=== PATIENT | female | born 1960 | race African-American/Black ===

== ENCOUNTER 2017-08-02 07:58 | Emergency (ER) | payer OTHER ==
[~2017-08-02] VITALS: Ht 160 cm; Wt 47.6 kg
--- NOTE | ~2017-08-02 | EKG ---
[place] [address] [facility] [place] [address] ELECTROCARDIOGRAM REPORT Name: DELL MOYA [facility] [id number] Admission: 08/02/17 Attend Phys: Discharge: 08/02/17 Date of : 56 Report #: [id number] THIS REPORT FOR: //name// [facility] ED Test Date: 2017-08-02 Test Time: 08:02:28 Pat Name: DELL MOYA Department: Room: Gender: F Signalman: DANIELLA : 1960 Requested By: Becky Mederos Order Number: [id number] MD: Billy Sherman Measurements Intervals [place] Rate: 96 P: 69 HI: 178 QRS: 91 QRSD: 98 T: 36 QT: 358 QTc: 453 Interpretive Statements Sinus rhythm LAE, consider biatrial enlargement Borderline right axis deviation Compared to ECG 09/27/2016 17:10:12 No significant changes Electronically Signed On 08-02-2017 16:29:51 CDT by Billy Sherman [email or web address] <ELECTRONICALLY SIGNED> By: Billy Sherman MD, [facility] 08/02/17 1629 1 1 Billy Sherman MD, [facility] /EPI
[~2017-08-02 07:58] MED LIST: ATIVAN0.5 MG PO; ATIVAN1 MG PO; BACTRIM DS TAB1 EACH; BACTRIM DS TAB1 EACH PO; CALCIUM 600 +1 EAC1 PO; DILANTIN100 MG PO; DILANTIN30 MG PO; FOLIC ACID 40400 MCG PO; KEPPRA 500 MG500 M1; LACTULOSE10 GM/152 PO; LAMICTAL100 MG PO; LAMICTAL150 MG PO; LAMICTAL200 MG PO; LEVAQUIN 500 M500 M2 PO; PHENYTOIN SODI100 M3 PO; PHENYTOIN SODI200 MG PO; SENNA8.6 MG PO; SENOKOT-S1 TA1 PO; TYLENOL325 MG PO; UNICOMPLEX M TA1 TA1 PO; VIMPAT100 MG PO; VIMPAT200 MG PO; VITAMIN B-12500 MCG PO; ZANTAC 150MG T150 MG PO; ZOFRAN ODT4 MG PO
[2017-08-02 09:22] LABS: URINE BILIRUBIN NEGATIVE (Negative); URINE BLOOD NEGATIVE (Negative); URINE COLOR YELLOW; URINE GLUCOSE-RANDOM* NEGATIVE (Negative); URINE KETONES NEGATIVE (Negative); URINE NITRITE NEGATIVE (Negative); URINE PROTEIN (DIPSTICK) NEGATIVE (Negative); URINE UROBILINOGEN 0.2 E.U./dl (0.2-1.0)
[2017-08-02 09:28] LABS: CALCIUM 9.6 mg/dL (8.5-10.1); CREATININE 1.3 mg/dL (0.6-1.0); POTASSIUM 4.5 mmol/L (3.5-5.1)
[2017-08-02 09:34] LABS: ALBUMIN 4.2 g/dL (3.4-5.0); DIRECT BILIRUBIN 0.1 mg/dL (<0.1-0.3); TOTAL BILIRUBIN 0.5 mg/dL (<0.1-1.0); TOTAL PROTEIN 7.7 g/dL (6.4-8.2)
[2017-08-02] MEDS ORDERED: HYDROCODONE-AP1 EAC6 PO (09:37)
[2017-08-02] MEDS ORDERED: BUTALB-APAP-CA1 EACH PO (09:37)
[2017-08-02] MEDS ORDERED: KEFLEX500 MG PO (09:49)
== END 2017-08-02 10:39 ==
LOC: ER 07:58
PROVIDERS: Emergency Medicine
DX: R56.9 Unspecified convulsions (principal); N39.0 Urinary tract infection, site not specified

== ENCOUNTER 2019-06-06 13:01 | Emergency (ER) | payer OTHER ==
[~2019-06-06] VITALS: Ht 172.7 cm; Wt 58.1 kg
[~2019-06-06 13:01] MED LIST changes: +BUTALB-APAP-CA1 EACH PO; +HYDROCODONE-AP1 EAC6 PO; +KEFLEX500 MG PO
[2019-06-06 14:08] LABS: ABSOLUTE NEUTROPHILS 3.1 thou/uL (1.4-8.2); BASOPHILS 0.5 % (0.0-2.0); EOSINOPHILS 0.3 % (0.0-3.0); HEMOGLOBIN 13.1 gm/dL (12.0-15.0); LYMPHOCYTES 35.3 % (24.0-44.0); MCH 29.2 pg (26.0-34.0); MCHC 32.8 g/dL (28.0-37.0); MONOCYTES 8.5 % (1.0-8.0); PLATELET COUNT 302 thou/uL (150-400); POLYS 55.4 % (36.0-66.0); RBC 4.49 mil/uL (4.20-5.00); RDW 13.9 % (10.5-14.5); WBC 5.6 thou/uL (4.0-11.0)
[2019-06-06] MEDS ORDERED: ATIVAN0.5 MG PO (14:11)
[2019-06-06] MEDS ORDERED: LIPITOR10 MG PO (14:12)
[2019-06-06] MEDS ORDERED: ROBITUSSIN100 MG/53 PO (14:12)
[2019-06-06 14:15] LABS: CALCIUM 9.7 mg/dL (8.5-10.1); CREATININE 1.6 mg/dL (0.6-1.0); POTASSIUM 5.2 mmol/L (3.5-5.1)
[2019-06-06 14:23] LABS: MAGNESIUM 1.9 mg/dL (1.8-2.4); TOTAL BILIRUBIN 0.6 mg/dL (<0.1-1.0); TOTAL PROTEIN 7.9 g/dL (6.4-8.2)
[2019-06-06 14:45] LABS: URINE BILIRUBIN NEGATIVE (Negative); URINE BLOOD NEGATIVE (Negative); URINE CLARITY CLEAR; URINE COLOR YELLOW; URINE GLUCOSE-RANDOM* NEGATIVE (Negative); URINE KETONES NEGATIVE (Negative); URINE LEUKOCYTES-REFLEX 1+ (Negative); URINE NITRITE-REFLEX NEGATIVE (Negative); URINE PROTEIN (DIPSTICK) NEGATIVE (Negative); URINE SPECIFIC GRAVITY 1.015 (1.005-1.035); URINE UROBILINOGEN 0.2 E.U./dl (0.2-1.0)
[2019-06-06 14:53] LABS: CASTS None Seen /LPF (None Seen); SQUAMOUS 0-3 Few /LPF (0-3); URINE RBC None Seen /HPF (0-2); URINE WBC-REFLEX 6-15 Few /HPF (0-5)
[2019-06-06 14:55] LABS: AMP/METHAMP Negative (Negative); BARBITURATES Negative (Negative); BENZODIAZEPINES Negative (Negative); COCAINE Negative (Negative); METHADONE Negative (Negative); OPIATES Negative (Negative); PCP Negative (Negative)
[2019-06-06 15:02] VITALS: BP 119/68
== END 2019-06-06 15:03 | disposition home or self-care (01) ==
LOC: ER 13:01
PROVIDERS: Emergency Medicine
DX: G40.909 Epilepsy, unspecified, not intractable, without status epilepticus (principal); E87.5 Hyperkalemia; N18.9 Chronic kidney disease, unspecified; E78.5 Hyperlipidemia, unspecified; Z87.440 Personal history of urinary (tract) infections; Z79.899 Other long term (current) drug therapy

== ENCOUNTER 2019-06-18 09:32 | Emergency (ER) | payer OTHER ==
[~2019-06-18] VITALS: Ht 175.3 cm; Wt 58.1 kg
[~2019-06-18 09:32] MED LIST changes: +LIPITOR10 MG PO; +ROBITUSSIN100 MG/53 PO
[2019-06-18 11:49] LABS: BASOPHILS 0.9 % (0.0-2.0); EOSINOPHILS 0.3 % (0.0-3.0); HEMATOCRIT 38.9 % (37.0-47.0); HEMOGLOBIN 12.8 gm/dL (12.0-15.0); LYMPHOCYTES 30.4 % (24.0-44.0); MCH 29.2 pg (26.0-34.0); MCV 88.5 fL (80.0-100.0); MONOCYTES 8.1 % (1.0-8.0); PLATELET COUNT 282 thou/uL (150-400); POLYS 60.3 % (36.0-66.0); RDW 13.8 % (10.5-14.5); WBC 4.9 thou/uL (4.0-11.0)
[2019-06-18 11:57] LABS: CALCIUM 10.2 mg/dL (8.5-10.1); CREATININE 1.3 mg/dL (0.6-1.0); POTASSIUM 3.8 mmol/L (3.5-5.1)
[2019-06-18 12:54] LABS: URINE BILIRUBIN NEGATIVE (Negative); URINE BLOOD NEGATIVE (Negative); URINE CLARITY CLEAR; URINE COLOR YELLOW; URINE GLUCOSE-RANDOM* NEGATIVE (Negative); URINE KETONES NEGATIVE (Negative); URINE LEUKOCYTES-REFLEX TRACE (Negative); URINE NITRITE-REFLEX NEGATIVE (Negative); URINE PROTEIN (DIPSTICK) NEGATIVE (Negative); URINE UROBILINOGEN 0.2 E.U./dl (0.2-1.0)
[2019-06-18 13:26] VITALS: BP 123/79
== END 2019-06-18 14:14 | disposition home or self-care (01) ==
LOC: ER 09:32
PROVIDERS: Emergency Medicine
DX: S90.01XA Contusion of right ankle, initial encounter (principal); S30.0XXA Contusion of lower back and pelvis, initial encounter; Z79.899 Other long term (current) drug therapy; W20.8XXA Other cause of strike by thrown, projected or falling object, initial encounter; Y93.89 Activity, other specified; Y92.89 Other specified places as the place of occurrence of the external cause; Y99.9 Unspecified external cause status

== ENCOUNTER 2020-03-09 13:40 | Inpatient (IN) | payer OTHER ==
[~2020-03-09] VITALS: Ht 170.2 cm; Wt 66.7 kg
--- NOTE | ~2020-03-09 | EMS ---
[facility] [address] [place] [address] EMS Patient Care Report Name: DELL MOYA Room #: REG IVÁN Yu#: [id number] Admission: 03/09/20 Attend Phys: Discharge: Date of : 56 Report #: [id number] THIS REPORT FOR: //name// Report Transmitted: 03/09/2020 13:41 EMS Care Summary [place], [place]/[facility] Incident [id number] @ 03/09/2020 12:55 Incident Location [address] Patient DELL MOYA Female, 60 Years 1960 Patient Address [address] [place] [address] Patient History Seizures,Hyperlipidemia, Patient Allergies Other drug allergy, Patient Medications Ativan, Lipitor, [place], Folic acid, Gabapentin, Lamictal, Senna, Tylenol, Chief Complaint FOCAL SEIZURE Disposition Transported No Lights/[place] Dis[place] Reason [place] [facility] [place] FOUND LYING IN BED. [facility] P[facility] ALSO RESPONDED, BUT STAYED IN PUMPER. STAFF STATES THAT PT IS NORMALLY A&OX3 AND DOES WELL ON HER OWN. STAFF STATES THAT SHE HAS NOTED PT HAVING 5-10 SEIZURE LIKE EPISODES TODAY. STAFF STATES PT IS [facility] [address] [place] [address] EMS Patient Care Report Name: DELL MOYA Room #: REG IVÁN Yu#: [id number] Admission: 03/09/20 Attend Phys: Discharge: Date of : 56 Report #: [id number] NOT TALKING WITH HER LIE NORMAL AND IS JUST NOT RIGHT. STAFF STATES THEY DO NOT KNOW HOW LONG PT HAS BEEN HAVING THESE EPISODES AND THAT STAFF DID NOT REPORT THEM FROM YESTERDAY. STAFF STATES THAT SHE HAS NOTED PT NOT BEING HER NORMAL SELF SINCE BREAKFAST TODAY. PT DENIES SPECIFIC COMPLAINT. NO COVID SYMPTOMS REPORTED. PT ASSISTED OUT OF ROOM TO COT. SURGICAL MASK APLIED TO PT FOR TRANSPORT. TRANSPORTED WITHOUT INCIDENT. Initial Vitals @13:14P: 105,R: 18,BP: 134/80,Pain: 0/10,GCS: 14,Glucose: 136,SpO2: 96,Revised Trauma: 12, Assessments @13:05MENTAL:Confused,SKIN:No Abnormalities,HEENT:Head/Face: No Abnormalities,Eyes: No Abnormalities,Neck/Airway: No Abnormalities,LUNG SOUNDS:ABDOMEN:PELVIS//GI:EXTREMITIES:PULSE:NEURO:Tremors, Impression Seizures Procedures @13:05ALS AssessmentResponse: UnchangedSucceeded Timeline 12:53,Call Received 12:53,Dispatch Notified 12:55,Dispatched 12:56,En Route 13:00,On Scene 13:05,At Patient 13:05,ALS Assessment,Response: UnchangedSucceeded, 13:14,BP: 134/80 M,PULSE: 105,RR: 18 R,SPO2: 96 Ox,ETCO2: ,B,PAIN: 0,GCS: 14, 13:20,Depart Scene 13:43,At Destination 13:50,Call Closed Disclaimer v1.1 Copyright 2020 [employer] This EMS Care Summary contains data elements from the applicable legal record (which may be displayed differently). It is designed to provide pertinent information for the following purposes: continuity of care, clinical quality, and state data reporting. The complete legal record is available to ED staff and administrators of the receiving hospital in [employer]'s Patient Tracker. All data is provided "as is."
[2020-03-09 13:44] VITALS: BP 133/84
[2020-03-09 14:33] LABS: BASOPHILS 0.2 % (0.0-2.0); HEMATOCRIT 38.5 % (37.0-47.0); HEMOGLOBIN 12.5 gm/dL (12.0-15.0); LYMPHOCYTES 12.5 % (24.0-44.0); MCHC 32.4 g/dL (28.0-37.0); MCV 89.4 fL (80.0-100.0); MONOCYTES 4.5 % (1.0-8.0); PLATELET COUNT 301 thou/uL (150-400); POLYS 82.8 % (36.0-66.0); RDW 13.6 % (10.5-14.5); WBC 7.2 thou/uL (4.0-11.0)
[2020-03-09 14:42] LABS: CALCIUM 9.6 mg/dL (8.5-10.1); CREATININE 1.4 mg/dL (0.6-1.0); POTASSIUM 3.8 mmol/L (3.5-5.1)
[2020-03-09 14:49] LABS: ALBUMIN 3.9 g/dL (3.4-5.0); TOTAL BILIRUBIN 0.4 mg/dL (<0.1-1.0); TOTAL PROTEIN 7.5 g/dL (6.4-8.2)
[2020-03-09 16:11] LABS: URINE BILIRUBIN NEGATIVE (Negative); URINE BLOOD NEGATIVE (Negative); URINE CLARITY CLEAR; URINE COLOR YELLOW; URINE GLUCOSE-RANDOM* NEGATIVE (Negative); URINE KETONES NEGATIVE (Negative); URINE LEUKOCYTES-REFLEX TRACE (Negative); URINE NITRITE-REFLEX NEGATIVE (Negative); URINE PROTEIN (DIPSTICK) NEGATIVE (Negative); URINE UROBILINOGEN 0.2 E.U./dl (0.2-1.0)
[2020-03-09 17:19] VITALS: BP 117/77
[2020-03-09 19:08] VITALS: BP 106/74
--- NOTE | 2020-03-09 19:16 | NUR ---
PATIENT IS A NEW ADMISSION TO THE UNIT THIS SHIFT. SHE ARRIVED VIA CART FROM THE ER AND WAS TRANSFERRED TO THE BED WITHOUT INCIDENT. PATIENT IS CONFUSED AND UNABLE TO PARTICIPATE IN ADMISSION PROCESS. NURSE TO COMPLETE ADMISSION HE IS ABLE AND INITIATE PLAN OF CARE.
[2020-03-09] MEDS ORDERED: ATIVAN1 M1 PO (20:00)
[2020-03-09] MEDS ORDERED: NEURONTIN300 MG PO (20:00)
[2020-03-09] MEDS ORDERED: ASPERCREME1 EACH TOP (20:01)
[2020-03-10] VITALS (8 sets, daily range): BP systolic 97–164; BP diastolic 6–79
--- NOTE | 2020-03-10 11:10 | EKG ---
[facility] [place] [place] [address] ELECTROCARDIOGRAM REPORT Name: DELL MOYA Room #: 216-P ADM IN M.R.#: [id number] Admission: 03/09/20 Attend Phys: Beata West MD Discharge: Date of : 56 Report #: [id number] THIS REPORT FOR: cc: Beata West MD,Beata Sherman,Billy Villanueva MD [facility] ~ THIS REPORT FOR: //name// [facility] ED Test Date: 2020-03-09 Test Time: 14:45:59 Pat Name: DELL MOYA Department: Room: 216 Gender: F Last Dipper: LETTY : 1960 Requested By: Adeline Montoya Order Number: [id number] MD: Billy Sherman Measurements Intervals [place] Rate: 103 P: 61 [place]: 168 QRS: 90 QRSD: 101 T: 41 QT: 351 QTc: 460 Interpretive Statements Sinus tachycardia Right atrial abnormality Consider right ventricular hypertrophy Compared to ECG 08/02/2017 08:02:28 No significant change was found Electronically Signed On 03-10-2020 11:09:05 CDT by Billy Sherman [email or web address] <ELECTRONICALLY SIGNED> By: Billy Sherman MD, [facility] 03/10/20 1109 1445 1445 Billy Sherman MD, [facility] /EPI
--- NOTE | 2020-03-10 19:49 | NUR ---
RECEIVED PT'S CARE AROUND 709; PT. ON BED; ALERT; SR ON THE MONITOR; DURING AM ASSESSMENT PT. AOX4; ST. "I WANT TO GO HOME"; EDUCATED ABOUT THE REASONS OF BEING OF THE HOSPITAL; ST. UNDERSTANDING; AM MEDICATIONS GIVEN; ABLE TO SWALLOW PILLS; DR. OTTO ROUNDING ON PT.; REQUESTED TO TALK TO DR. THOMAS; PHYSICIAN PAGED; TRANSFER CALLED; NO ST AT THE HOSPITAL; DR. OTTO NOTIFIED; ORDERS RECEIVED; DR. THOMAS UPDATE DURING ROUNDINGS; THROUGH THE DAY PT. CAML; COOPERATIVE; NO SEIZURE ACTIVITY; ABLE TO STAND TO THE BED SIDE COMMODE WITH ASSISSTANCE; SR ON THE MONITOR; ASSESSMENT CHARGED; FOLLOWING POC; PASSED ON REPORT;
--- NOTE | 2020-03-11 04:14 | NUR ---
PATIENT IS PROGRESSING IN HER CARE PLAN. VITAL SIGNS STABLE WITH PATIENT HAVING NO COMPLAINTS OF PAIN OR NAUSEA. PATIENT HAS REMAINED FULLY ORIENTED THROUGHOUT SHIFT. NO SIGNS OR SYMPTOMS OF SEIZURE LIKE ACTIVITY FROM PATIENT. INCONTINENT FREE, SHE HAS BEEN ABLE TO AMBULATE TO BEDSIDE COMMODE WITH ASSISTANCE INCIDENT FREE. PATIENT IS ANXIOUS FOR POTENTIAL DISCHARGE SOON. CONTINUE PLAN OF CARE.
[2020-03-11 04:57] VITALS: BP 101/58
[2020-03-11 08:00] VITALS: BP 114/79
--- NOTE | 2020-03-11 10:36 | NUR ---
spoke with patient she admits with seizure. She resides at [facility]. Sp with RN at [facility]. Patient uses walker to ambulate. Fax at [facility] [phone]. Therapy evals today. Plan return once stable casemgt following.
[2020-03-11 12:00] VITALS: BP 108/66
[2020-03-11 16:00] VITALS: BP 121/62
--- NOTE | 2020-03-11 16:02 | NUR ---
Assumed pt care this am, pt is very pleasant, alert and oriented forgetful most of the time. will not call out when she needs to get up to go to the toilet. No seizure was noted, pt was cnotinent for this shift. Pt has been wanting to go home today and would request on numerous occassions to get her clothes on, pt is redirectable. Seen by Dr. West, plan is for the pt to go back to her facility tomorrow. POC follwed no signs or verbalizations of distress have been noted.
--- NOTE | 2020-03-11 16:43 | NUR ---
FAXED CLINICAL UPDATE TO [facility] RECEIVED CONFIRMATION AND LEFT MSG WITH ADM. DP TO FOLLOW.
[2020-03-11 20:13] VITALS: BP 117/68
[2020-03-12 05:05] VITALS: BP 111/67
--- NOTE | 2020-03-12 05:26 | NUR ---
ALERT,ABLE TO ANSWERS QUESTIONS.SLEPT ALMOST ALL NIGHT.NO SEIZURES NOTED.MONITOR SHOWS SR.POC CONTINUED.
[2020-03-12 07:40] VITALS: BP 105/72
[2020-03-12] MEDS ORDERED: VIMPAT100 MG PO (10:54)
[2020-03-12] MEDS ORDERED: ATIVAN1 M1 PO (10:56)
[2020-03-12 16:20] VITALS: BP 97/63
--- NOTE | 2020-03-12 19:55 | NUR ---
Assumed pt care this am, VS stable. Stayed on her recliner for most of the day. POC followed, no signs or verbalizatiosn of distress have been noted. Pt will be DC tomorrow as per SONNY. endorsed to the night nurse.
[2020-03-12 20:32] VITALS: BP 118/72
--- NOTE | 2020-03-13 04:55 | NUR ---
ASSUMED PT CARE AT 1900. PT IS ALERT AND ORIENTED BUT FORGETFUL. NO SIGN OF DISTRESS NOTED IN PT. PT IS SITTING IN CHAIR AND TRANSFERRED TO BED. PT IS STABLE. DENIES ANY PAIN. FALL PRECAUTION IN PLACE. ASSESSMENT COMPLETED AND DOCUMENTED. SCHEDULED MEDS ADMINISTERED TO PT. TOLERATED PO INTAKE. NO ACUTE EVENTS OVERNIGHT. DENIES ANY FURTHER NEEDS AT THIS TIME.
[2020-03-13 05:36] VITALS: BP 92/51
[2020-03-13 07:00] VITALS: BP 85/54
--- NOTE | 2020-03-13 10:29 | NUR ---
AAOX3. CALM, COOPERATIVE. NO S/S SEIZURE ACTIVITY. NSR PER TELE. FALL PRECAUTIONS IN PLACE, SIDE RAILS PADDED. ANTICIPATING DISCHARGE TODAY. WILL CONTINUE TO FOLLOW CLOSELY.
[2020-03-13 11:00] VITALS: BP 106/65
[2020-03-13 13:32] VITALS: BP 106/65
--- NOTE | 2020-03-13 15:07 | NUR ---
PT DISCHARGING TODAY BACK TO [facility] FAXED DC ORDERS/SUMMARY TO FACILITY SPOKE WITH KELSI IN ADM SHE RECEIVED ORDERS THEY DO NOT HAVE TRANSPORTATION AVAILABLE SO TRANSPORT ARRANGED THROUGH [facility] #[id number] THEY WILL ASSISTANT CASINO SHIFT MANAGER BETWEEN [phone] TODAY. NOTIFIED PT'S DTR (LAURA) OF DC AND TIME OF TRANSPORT. UNIT NOTIFIED AND CHART COPY PER US. RN TO CALL REPORT TO [phone].
[2020-03-13 15:08] VITALS: BP 106/65
--- NOTE | 2020-03-13 18:15 | NUR ---
RECEIVED PHONE CALL WITH A FEMALE VOICE SAYING SHE WAS HERE TO TRANSPORT PATIENT BACK TO ASSISTED LIVING. WC VAN ARRANGED BY [facility] AND EXPECTED. WHEELED PATIENT DOWN TO E.D. ONLY TO DISCOVER A PRIVATE VEHICLE DRIVEN BY THE PATIENT'S DTR. PATIENT WAS INPATIENT AND HAD CALLED HER DTR FOR TRANSPORT. UNSURE IF TRANSPORT VIA PERSONAL VEHICLE IS ALLOWED. DTR BEGAN DROPPING THE F-BOMB, STATING SHE IS TAKING HER MOTHER AND THAT'S THAT. JUST THEN A COVID-19 PATIENT EXITED THE E.D. DOOR AND WE WERE TOLD TO CLEAR OUT. PT'S DTR DROVE AWAY WE CLEARED THE AREA. SECURITY ON HAND AND STATED IT WAS HANDLED PROPERLY.
--- NOTE | 2020-03-15 13:32 | EEG ---
[facility] [place] [address] ELECTROENCEPHALOGRAM Name: DELL MOYA Room #: 216-P [facility] IN M.R.#: [id number] Admission: 03/09/20 Attend Phys: Beata West MD Discharge: 03/13/20 Date of : 56 Report #: [id number] THIS REPORT FOR: //name// CC: Beata West [facility] DATE OF SERVICE: 03/11/2020 This patient is being evaluated for altered mental status and seizure. EEG was done by placing the electrode by standard 10-20 system of electrode placement. Both referential and sequential montages were used for recording. Background activity in this patient's EEG is about 8 Hz and 30 microvolt. It is intermixed with theta range slowing on both sides. Photic stimulation was unremarkable. The patient became drowsy and that was associated with bilateral slowing and vertex sharp waves. No spike and slow wave activity was noticed. IMPRESSION: This patient's EEG does not demonstrate any pronounced epileptiform activity. It is somewhat intermixed with theta range slowing on both sides. That is a nonspecific finding, which can occur with dementia, encephalopathy, effect of psychotropic medication. EEG is somewhat unstable, but not clearly epileptiform. <ELECTRONICALLY SIGNED> By: Onofre Cardoza MD 03/15/20 1332 1604 1609 Onofre Cardoza MD /nt
== END 2020-03-13 18:04 | DRG 100 ==
LOC: ER 13:40 → 2N 16:57 → EROBS 16:57 → 2N 18:47
PROVIDERS: Nurse Practitioner Family; ADMIT Internal Medicine
DX: G40.401 Other generalized epilepsy and epileptic syndromes, not intractable, with status epilepticus (principal); Q04.3 Other reduction deformities of brain; R47.01 Aphasia; G93.40 Encephalopathy, unspecified; T42.0X5A Adverse effect of hydantoin derivatives, initial encounter; R47.1 Dysarthria and anarthria; N18.3 Chronic kidney disease, stage 3 (moderate); E78.5 Hyperlipidemia, unspecified; G31.84 Mild cognitive impairment of uncertain or unknown etiology; Z79.899 Other long term (current) drug therapy; Y92.89 Other specified places as the place of occurrence of the external cause; F95.9 Tic disorder, unspecified
CPT/HCPCS: 10081

== ENCOUNTER 2020-08-24 14:14 | Emergency (ER) | payer OTHER ==
[~2020-08-24] VITALS: Ht 170.2 cm; Wt 59.0 kg
[~2020-08-24 14:14] MED LIST changes: +ASPERCREME1 EACH TOP; +ATIVAN1 M1 PO; +NEURONTIN300 MG PO
[2020-08-24 16:21] LABS: HEMATOCRIT 36.1 % (37.0-47.0); HEMOGLOBIN 11.6 gm/dL (12.0-15.0); MCH 28.2 pg (26.0-34.0); MCHC 32.2 g/dL (28.0-37.0); MCV 87.5 fL (80.0-100.0); PLATELET COUNT 337 thou/uL (150-400); RBC 4.13 mil/uL (4.20-5.00); RDW 14.7 % (10.5-14.5)
[2020-08-24 16:22] LABS: URINE BILIRUBIN NEGATIVE (Negative); URINE BLOOD NEGATIVE (Negative); URINE CLARITY CLEAR; URINE COLOR YELLOW; URINE GLUCOSE-RANDOM* NEGATIVE (Negative); URINE KETONES NEGATIVE (Negative); URINE LEUKOCYTES-REFLEX NEGATIVE (Negative); URINE NITRITE-REFLEX NEGATIVE (Negative); URINE PROTEIN (DIPSTICK) NEGATIVE (Negative); URINE SPECIFIC GRAVITY 1.015 (1.005-1.035); URINE UROBILINOGEN 0.2 E.U./dl (0.2-1.0)
[2020-08-24 16:33] LABS: CALCIUM 9.5 mg/dL (8.5-10.1); CREATININE 1.2 mg/dL (0.6-1.0); POTASSIUM 3.7 mmol/L (3.5-5.1)
[2020-08-24 16:39] LABS: TOTAL BILIRUBIN 0.4 mg/dL (0.2-1.0); TOTAL PROTEIN 7.6 g/dL (6.4-8.2)
[2020-08-24 16:47] LABS: ABSOLUTE NEUTROPHILS 6.6 thou/uL (1.4-8.2)
[2020-08-24 18:06] VITALS: BP 109/70
== END 2020-08-24 18:57 | disposition home or self-care (01) ==
LOC: ER 14:14
PROVIDERS: Nurse Practitioner
DX: R56.9 Unspecified convulsions (principal); Z79.899 Other long term (current) drug therapy

== ENCOUNTER 2020-12-07 11:32 | Emergency (ER) | payer OTHER ==
[~2020-12-07] VITALS: Ht 172.7 cm; Wt 54.4 kg
[2020-12-07 13:06] LABS: BASOPHILS 0.3 % (0.0-2.0); HEMATOCRIT 39.2 % (37.0-47.0); HEMOGLOBIN 12.6 gm/dL (12.0-15.0); LYMPHOCYTES 12.4 % (24.0-44.0); MCH 28.6 pg (26.0-34.0); MCHC 32.2 g/dL (28.0-37.0); MCV 88.8 fL (80.0-100.0); MONOCYTES 4.3 % (1.0-8.0); PLATELET COUNT 295 thou/uL (150-400); RBC 4.41 mil/uL (4.20-5.00); RDW 14.1 % (10.5-14.5)
[2020-12-07 13:10] LABS: CALCIUM 10.2 mg/dL (8.5-10.1); CREATININE 1.4 mg/dL (0.6-1.0)
[2020-12-07 13:10] LABS: URINE BILIRUBIN NEGATIVE (Negative); URINE BLOOD NEGATIVE (Negative); URINE CLARITY CLEAR; URINE COLOR YELLOW; URINE GLUCOSE-RANDOM* NEGATIVE (Negative); URINE KETONES NEGATIVE (Negative); URINE LEUKOCYTES-REFLEX NEGATIVE (Negative); URINE NITRITE-REFLEX NEGATIVE (Negative); URINE PROTEIN (DIPSTICK) NEGATIVE (Negative); URINE SPECIFIC GRAVITY 1.015 (1.005-1.035); URINE UROBILINOGEN 0.2 E.U./dl (0.2-1.0)
[2020-12-07 13:15] LABS: ALBUMIN 4.3 g/dL (3.4-5.0); TOTAL BILIRUBIN 0.5 mg/dL (0.2-1.0); TOTAL PROTEIN 7.8 g/dL (6.4-8.2)
[2020-12-07 14:00] VITALS: BP 117/75
== END 2020-12-07 14:00 ==
LOC: ER 11:32
PROVIDERS: Nurse Practitioner
DX: R56.9 Unspecified convulsions (principal); Z79.899 Other long term (current) drug therapy

== ENCOUNTER 2021-07-18 10:24 | Inpatient (IN) | payer OTHER ==
[~2021-07-18] VITALS: Ht 165.1 cm; Wt 59.9 kg
--- NOTE | ~2021-07-18 | EEG ---
[facility] [place] [address] ELECTROENCEPHALOGRAM Name: DELL MOYA Room #: 462-P ADM IN M.R.#: [id number] Admission: 07/18/21 Attend Phys: Fernie Ye MD Discharge: Date of : 56 Report #: [id number] THIS REPORT FOR: //name// DATE OF SERVICE: 07/18/2021 This patient is being evaluated for seizure. EEG 1 was done by placing the electrode by standard 10-20 system of electrode placement. Both referential and sequential montages were used for recording. Background activity in this patient's EEG is about 9 Hz and 30 microvolt. Frontally predominant spike and slow wave activities are present. The patient goes to sleep, that is associated with bilateral slowing and vertex sharp waves. IMPRESSION: This is an abnormal EEG because it appeared to be showing epileptiform activity arising from frontal area, especially on the left side, lot of artifact is present and therefore clinical correlation is recommended for this finding to be significant. By: 1225 1450 Onofre Cardoza MD /nt
--- NOTE | ~2021-07-18 | EMS ---
[address] [address] EMS Patient Care Report Name: DELL MOYA Room #: 462-P [facility] IN M.R.#: [id number] Admission: 07/18/21 Attend Phys: Fernie Ye MD Discharge: 07/19/21 Date of : 56 Report #: [id number] THIS REPORT FOR: //name// Report Transmitted: 07/21/2021 09:42 EMS Care Summary [place], [place]/[facility] Incident [id number] @ 07/18/2021 09:53 Incident Location [address] Patient NITA SHARPE Female, 61 Years 1960 Patient Address [address] [place] [address] [address] [place] [address] Patient History Dementia,Seizures,Gastro-Esophageal Reflux Disease (GERD),Constipation,Whooping Cough (Pertussis),Vertigo, Patient Allergies No known allergies, Patient Medications Lamictal, Vitamin D, Lorazepam, Vitamin B12, [place], Chief Complaint seizures Disposition Transported No Lights/[place] Dispatch Reason Convulsions/Seizure Transported To [facility] Narrative 61 y/o female seizure pt [facility] [address] [place] [address] EMS Patient Care Report Name: DELL MOYA Room #: 462-P [facility] IN M.R.#: [id number] Admission: 07/18/21 Attend Phys: Fernie Ye MD Discharge: 07/19/21 Date of : 56 Report #: [id number] Upon arrival the pt was lying on the floor on her L side in the position. The pt is A&O x 1 with a GCS of 15. She has a patent airway, breathing is normal, and has a strong reg radial pulse. The staff stated that she had 2 seizures. They are unsure about the length of the seizure. Her boyfriend witnessed her seizures. The pt was picked up off the floor placed on the cot in a position of comfort, secured to the cot and loaded into the ambulance. VS were obtained, ECG is SR, a 20 g lock was placed in her LAC, D-133. The pt was transported to [facility] per MD assisted staff request. The pt was postictal state for the duration of transport to [facility]. The pt was taken to her room, EMS gave report and returned to service. Initial Vitals @10:09P: 89,CO: 5,SpO2: 99, @10:11P: 94,BP: 131/87,CO: 3,SpO2: 100, @10:05P: 93,R: 16,BP: 124/73,Pain: 0/10,GCS: 15,Glucose: 133,SpO2: 100,Revised Trauma: 12, Assessments @10:16MENTAL:Event Oriented,Place Oriented,Time Oriented,Person Oriented,SKIN:HEENT:Head/Face: No Abnormalities,Neck/Airway: No Abnormalities,LUNG SOUNDS:General: No Abnormalities,Left Upper: No Abnormalities,Right Upper: No Abnormalities,Left Lower: No Abnormalities,Right Lower: No Abnormalities,ABDOMEN:General: No Abnormalities,Left Upper: No Abnormalities,Right Upper: No Abnormalities,Left Lower: No Abnormalities,Right Lower: No Abnormalities,PELVIS//GI:No Abnormalities,EXTREMITIES:Capillary Refill: Right Upper: < 2 Sec,Capillary Refill: Left Upper: < 2 Sec,Left Arm: No Abnormalities,Right Arm: No Abnormalities,Left Leg: No Abnormalities,Right Leg: No Abnormalities,PULSE:Radial: 2+ Normal,NEURO:No Abnormalities, Impression Seizures Procedures @10:14ALS AssessmentResponse: UnchangedSucceeded@10:153-Lead ECGResponse: UnchangedSucceeded@10:143-Lead ECGResponse: UnchangedSucceeded@10:08Saline Lock 10cc (20 ga) Site: Antecubital-LeftResponse: UnchangedSucceeded Timeline 09:51,Call Received 09:51,Dispatch Notified 09:53,Dispatched 09:54,En Route 09:56,On Scene 09:57,At Patient 10:05,BP: 124/73 M,PULSE: 93,RR: 16 R,SPO2: 100 Ox,ETCO2: ,B,PAIN: 0,GCS: 15, [address] [address] EMS Patient Care Report Name: DELL MOYA CHRISTIAN Room #: 462-P [facility] IN M.R.#: [id number] Admission: 07/18/21 Attend Phys: Fernie Ye MD Discharge: 07/19/21 Date of : 56 Report #: [id number] 10:08,Saline Lock 10cc 20 ga Site: Antecubital-Left,Response: UnchangedSucceeded, 10:09,BP: / M,PULSE: 89,RR: R,SPO2: 99 Ox,ETCO2: ,BG: ,PAIN: ,GCS: , 10:11,BP: 131/87 M,PULSE: 94,RR: R,SPO2: 100 Ox,ETCO2: ,BG: ,PAIN: ,GCS: , 10:11,Depart Scene 10:14,ALS Assessment,Response: UnchangedSucceeded, 10:14,3-Lead ECG,Response: UnchangedSucceeded, 10:15,3-Lead ECG,Response: UnchangedSucceeded, 10:27,At Destination 10:40,Call Closed Disclaimer v1.1 Copyright 2020 [employer] This EMS Care Summary contains data elements from the applicable legal record (which may be displayed differently). It is designed to provide pertinent information for the following purposes: continuity of care, clinical quality, and state data reporting. The complete legal record is available to ED staff and administrators of the receiving hospital in [employer]'s Patient Tracker. All data is provided "as is."
--- NOTE | ~2021-07-18 | HC ---
[facility] [place] [address] CONSULTATION Name: DELL MOYA Room #: 462-P ADM IN M.R.#: [id number] Admission: 07/18/21 Attend Phys: Fernie Ye MD Discharge: Date of : 56 Report #: [id number] THIS REPORT FOR: cc: Beata West MD, Ramilo MD Khosla,Onofre Delgadillo MD ~ DATE OF SERVICE: 07/18/2021 HISTORY OF PRESENT ILLNESS: This is a 61-year-old female patient who is unable to provide any history. The patient opens her eyes, but does not do anything for me. I talked to Emergency Room nurse practitioner multiple times in this patient. Subsequently, I reviewed her old record and I was able to find a number for the sister, whom I talked. The patient used to live with her sister, but she got busy with her job and then the patient started living in assisted living. It looks like she was having seizure with fair regularity and there was nobody at home, which can help her with a seizure and she was sent to the custodial. I did not have any records except in the computer, which I reviewed. It looks like this patient goes to [facility] for her seizure management, but one of the notes indicated that she also went to Dr. Cadroso who was a neurologist at [place], but now is in [place]. She notes as far back as 2013. According to the family, she used to be on Dilantin, but Dilantin was stopped because "new medication came." She was admitted with 3 seizures today. She got some Ativan and when I saw her, she is completely out. I talked to the people where she lives, but I cannot get any history about what happened during the seizure whether she hit her head or neck and then I talked to the sister and she provided a lot of history. She insists she was never on Keppra, but the record indicated at one time she used to be on Keppra. She says that she have seizure when she misses her medication. The assisted living pupil insists that she did not miss out any medication. She got the 8 o'clock dose and she got her dose last night. She is on 200 mg p.o. b.i.d. of Vimpat. She is on 200 mg of Lamictal, which is a pretty good dose, but people abuse higher dose than that. I do not know which neurologist she follow up with. REVIEW OF SYSTEMS: That is the relevant review system I can get. Past medical history is positive for seizure. It has been attributed to traumatic brain injury. I do not think the history is definite that the best I can tell from the sister. She never had any severe injury for which she was admitted to the hospital. During some of these seizures, she fell and her daughter thought that she may have had injury to the brain at that time and that is the cause of the seizure. In any event, she is functional. She can ambulate and according to the family, she becomes pretty much out after the seizure, but then in the baseline, she is able to function reasonably well. This is all the relevant review systems I can get. [facility] [address] [facility] [place] [address] CONSULTATION Name: DELL MOYA Room #: 462-P [facility] IN M.R.#: [id number] Admission: 07/18/21 Attend Phys: Fernie Ye MD Discharge: Date of : 56 Report #: [id number] PAST MEDICAL HISTORY: Positive for seizure. From the record here and from the history, it looks like there are fairly frequent and needs better control. FAMILY HISTORY: Unremarkable. SOCIAL HISTORY: She is in assisted living. PHYSICAL EXAMINATION: Pretty limited. She opened her eyes. She did not talk and she did not follow any commands. Cardiac examinations appear unremarkable. No respiratory difficulty was noticed. We will try to reexamine her some other time. IMPRESSION: Breakthrough seizure in a patient who has numerous seizures in the past and looks like a pretty frequent. I do not have any prior records except for what is in the computer. For the acute management, I think the best will be to restart the Keppra because the family is pretty certain that she is not allergic to Keppra or have any problem with Keppra. If she is able to swallow fairly soon, then we can restart her Vimpat and Lamictal. Lamictal dose can be increased somewhat to better control the seizures. We will also leave her on Keppra. This patient already is on 2 potent anticonvulsant and still keep having seizures. Other options like a vagus nerve stimulator need to be considered in this patient and I will defer that to her neurologist and probably an epileptologist ___. She has some nitrite positive and bacteria in the urine and I will defer to the hospitalist and if they think that needs treatment because any infection can trigger the seizure. I will check her EEG is some time. I spent more than 50 minute of time taking care of this patient today and majority was spent counseling and coordinating. By: 1205 9513 Onofre Cardoza MD /nt
[2021-07-18 10:25] VITALS: BP 123/69
[2021-07-18 11:36] LABS: ABSOLUTE NEUTROPHILS 4.1 thou/uL (1.4-8.2); BASOPHILS 0.2 % (0.0-2.0); HEMATOCRIT 37.9 % (37.0-47.0); HEMOGLOBIN 12.1 gm/dL (12.0-15.0); LYMPHOCYTES 11.7 % (24.0-44.0); MCH 28.2 pg (26.0-34.0); MCHC 32.1 g/dL (28.0-37.0); MCV 87.9 fL (80.0-100.0); PLATELET COUNT 294 thou/uL (150-400); POLYS 84.1 % (36.0-66.0); RBC 4.31 mil/uL (4.20-5.00); RDW 14.4 % (10.5-14.5); WBC 4.9 thou/uL (4.0-11.0)
[2021-07-18 11:43] LABS: CALCIUM 9.1 mg/dL (8.5-10.1); CREATININE 1.5 mg/dL (0.6-1.0); POTASSIUM 4.2 mmol/L (3.5-5.1)
[2021-07-18 11:52] LABS: ALBUMIN 3.7 g/dL (3.4-5.0); TOTAL BILIRUBIN 0.5 mg/dL (0.2-1.0); TOTAL PROTEIN 7.2 g/dL (6.4-8.2)
--- NOTE | 2021-07-18 12:05 | EKG ---
[place] [address] [facility] [place] [address] ELECTROCARDIOGRAM REPORT Name: DELL MOYA [facility] [id number] Admission: 07/18/21 Attend Phys: Discharge: Date of : 56 Report #: [id number] [facility] ED Test Date: 2021-07-18 Test Time: 10:29:48 Pat Name: DELL MOYA Department: Room: Gender: F Supervisor Shaving [employer] Splitting: : 1960 Requested By: Nichole Cisneros Order Number: [id number] MD: Solitario Munoz Measurements Intervals [place] Rate: 88 P: 70 SC: 197 QRS: 85 QRSD: 102 T: 54 QT: 373 QTc: 452 Interpretive Statements Sinus rhythm Biatrial enlargement Consider right ventricular hypertrophy Compared to ECG 03/09/2020 14:45:59 Sinus tachycardia no longer present Electronically Signed On 07-18-2021 12:04:52 CDT by Solitario Munoz [email or web address] <ELECTRONICALLY SIGNED> By: Solitario Munoz MD, [facility] 07/18/21 1204 1029 1029 Solitario Munoz MD, [facility] /EPI
[2021-07-18 12:10] LABS: URINE BILIRUBIN NEGATIVE (Negative); URINE BLOOD NEGATIVE (Negative); URINE CLARITY CLEAR; URINE COLOR YELLOW; URINE GLUCOSE-RANDOM* NEGATIVE (Negative); URINE KETONES NEGATIVE (Negative); URINE LEUKOCYTES-REFLEX TRACE (Negative); URINE NITRITE-REFLEX POSITIVE (Negative); URINE PROTEIN (DIPSTICK) NEGATIVE (Negative); URINE SPECIFIC GRAVITY 1.015 (1.005-1.035); URINE UROBILINOGEN 0.2 E.U./dl (0.2-1.0)
[2021-07-18 12:28] LABS: BACTERIA-REFLEX >30 Many /HPF (None Seen); CASTS None Seen /LPF (None Seen); CRYSTALS None Seen /LPF (None Seen); SQUAMOUS None Seen /LPF (0-3); URINE RBC None Seen /HPF (NONE SEEN); URINE WBC-REFLEX 0-5 Rare /HPF (0-5)
[2021-07-18 15:42] VITALS: BP 104/70
[2021-07-18] MEDS ORDERED: ASA81BEC PO (16:15)
[2021-07-18] MEDS ORDERED: BUTALB-APAP-CA1 EACH PO (16:17)
[2021-07-18 16:35] VITALS: BP 104/70
[2021-07-18 17:00] VITALS: BP 96/58
--- NOTE | 2021-07-18 18:06 | NUR ---
ASSUMED PT CARE UPON ADMISSION TO UNIT AT 1700. PATIENT IS ALERT, BUT POST ICTAL AND WILL NOT ANSWER QUESTIONS WHEN ASKED. PATIENT ALLOWED NURSE TO LISTEN TO LUNGS, HEART, AND BOWEL SOUNDS, BUT DID NOT ALLOW SKIN TO BE ASSESSED OR ANSWER ANY OTHER QUESTIONS VERBALLY FOR ADMISSION. DPOA (ANTHONY [phone]) CONTACTED TO COMPLETE ADMISSION. DPOA WAS NOT SURE IF THE PATIENT HAD COVID VACCINE OR NOT. ANTHONY REPORTS THAT DELL IS NORMALLY CONVERSIVE AND ORIENTED AT BASELINE. PATIENT PLACED ON TELE. SEIZURE PRECAUTIONS PLACED. PATIENT ON ROOM AIR. FALL PRECAUTIONS ARE IN PLACE, CALL LIGHT WITHIN REACH.
[2021-07-18 22:32] VITALS: BP 95/51
[2021-07-19 05:42] LABS: ABSOLUTE NEUTROPHILS 2.3 thou/uL (1.4-8.2); BASOPHILS 0.7 % (0.0-2.0); EOSINOPHILS 0.3 % (0.0-3.0); HEMATOCRIT 35.3 % (37.0-47.0); HEMOGLOBIN 11.7 gm/dL (12.0-15.0); MCHC 33.2 g/dL (28.0-37.0); MCV 87.4 fL (80.0-100.0); MONOCYTES 7.5 % (1.0-8.0); PLATELET COUNT 258 thou/uL (150-400); POLYS 43.5 % (36.0-66.0); RBC 4.04 mil/uL (4.20-5.00); RDW 14.3 % (10.5-14.5); WBC 5.3 thou/uL (4.0-11.0)
[2021-07-19 06:11] LABS: CALCIUM 8.8 mg/dL (8.5-10.1); CREATININE 1.3 mg/dL (0.6-1.0); MAGNESIUM 1.8 mg/dL (1.8-2.4); POTASSIUM 3.6 mmol/L (3.5-5.1)
--- NOTE | 2021-07-19 06:11 | NUR ---
Pt. rested quietly during the night when checked on during frequent rounds. She did get up and ambulate to the bathroom with assistance. No c/o pain. No noted seizure activity. Bed alarm is on.
[2021-07-19 08:05] VITALS: BP 110/65
--- NOTE | 2021-07-19 09:55 | NUR ---
PATIENT WAS FOUND IN BED, SOAKED IN NORMAL SALINE. PATIENT HAD PULLED IV OUT BETWEEN 0730 TO BREAKFAST TIME. AT 0730 PATIENT EXPRESSED WANTING TO GO HOME. PROVIDER WAS PAGED AND TOLD SHE PULLED IV OUT; PATIENT IS A&OX4 BUT STILL SEEMS POSTICTAL W SOME RESIDUAL CONFUSION. PATIENT WORKED WITH PT THIS DAY; DEEMED A SBA W WALKER. WILL UPDATE NEURO W PATIENT DESIRE TO DISCHARGE. FALL AND SIEZURE PRECAUTIONS REMIAN IN PLACE. WILL CONTINUE TO MONITOR
[2021-07-19] MEDS ORDERED: CEPHALEXIN500 MG PO (12:01)
[2021-07-19] MEDS ORDERED: KEPPRA 500 MG500 MG PO (12:01)
[2021-07-19 15:40] VITALS: BP 110/65
== END 2021-07-19 17:18 | disposition home or self-care (01) | DRG 101 ==
LOC: ER 10:24 → EROBS 15:27 → 4W 16:59
PROVIDERS: Nurse Practitioner; Nurse Practitioner Family; ADMIT Hospitalist; ATTEND Hospitalist
DX: G40.909 Epilepsy, unspecified, not intractable, without status epilepticus (principal); N17.9 Acute kidney failure, unspecified; N39.0 Urinary tract infection, site not specified; D56.9 Thalassemia, unspecified; E78.5 Hyperlipidemia, unspecified; N18.9 Chronic kidney disease, unspecified; Z20.822 Contact with and (suspected) exposure to COVID-19; Z87.820 Personal history of traumatic brain injury; Z79.82 Long term (current) use of aspirin; Z79.899 Other long term (current) drug therapy
CPT/HCPCS: 10045